=== PATIENT | male | born 1985 | race Caucasian/White ===

== ENCOUNTER 2017-06-14 09:54 | Emergency (ER) | payer MEDICAID | END 2017-06-14 12:30 | disposition home or self-care (01) | LOC: FTE 09:54 | DX: R05 Cough (principal) | CPT/HCPCS: 99284; Z7502 ==

== ENCOUNTER 2017-06-28 07:55 | Emergency (ER) | payer MEDICAID ==
[2017-06-28] MEDS: HYDROCODONE/APAP (5/325) TAB PO (10:33)
== END 2017-06-28 12:16 | disposition home or self-care (01) ==
LOC: FTE 07:55
DX: G51.0 Bell's palsy (principal)
CPT/HCPCS: 70450; 99284-25